=== PATIENT | female | born 2005 | race American Indian/Alaskan Native ===

== ENCOUNTER 2024-01-31 16:53 | Emergency (ER) | payer SELFPAY ==
[~2024-01-31] VITALS: Ht 157.5 cm; Wt 84.2 kg
[2024-01-31] MEDS ORDERED: NEOMYCIN/POLYMYXIN/HYDROCORT 10 ML HOME.PACK OTIC ONE (19:30)
[2024-01-31 19:51] VITALS: BP 116/64
== END 2024-01-31 19:52 | disposition home or self-care (01) ==
LOC: ED 16:53
DX: H60.91 Unspecified otitis externa, right ear (principal)